=== PATIENT | male | born 1980 | race Caucasian/White ===

== ENCOUNTER 2019-01-07 20:41 | Emergency (ER) | payer MEDICAID, OTHER ==
[~2019-01-07] VITALS: Ht 175.3 cm; Wt 81.1 kg
--- NOTE | 2019-01-07 21:03 | NUR ---
C/O SUIDICAL IDEATION WITH PLAN ( RAN INTO TRAFFIC ) HEARING VOICES. HX OF SCHIZOPHRENIA AND RAN OUT OF PSYCH MEDICATION X 1 WEEK. + ETOH. LAST DRINK APPROX 1 HOUR AGO. UA COLLECTED AND WALKED TO LAB. PT GETTING CHANGED AND ROOM SECURED. PT TO BE EVALUATED BY .
[2019-01-07 21:19] LABS: AMPHETAMINE SCREEN, URINE Negative (Negative); BARBITURATE SCREEN, URINE Negative (Negative); BENZODIAZEPINE SCREEN, URINE Negative (Negative); CANNABINOID SCREEN, URINE Negative (Negative); COCAINE SCREEN, URINE Negative (Negative); METHADONE SCREEN, URINE Negative (Negative); OPIATE SCREEN, URINE Negative (Negative)
[2019-01-07 21:27] LABS: MEAN CORPUSCULAR HEMOGLOBIN 22.2 pg (27.5-34.5); MEAN CORPUSCULAR VOLUME 74.8 fL (81-97); MEAN PLATELET VOLUME 8.3 fL (7.4-10.4); PLATELET COUNT 407 x10^3/uL (130-400); RED BLOOD COUNT 3.65 x10^6/uL (4.38-5.82); RED CELL DISTRIBUTION WIDTH 19.2 % (9.4-14.8)
--- NOTE | 2019-01-07 21:27 | NUR ---
PTS BELONGINGS REMOVED AND SECURED. 3 BAGS PLACED IN LOCKER. PT RESTING WITH NO NEEDS AT THIS TIME. SITTER IN VIEW OF PT.
[2019-01-07 21:28] LABS: ALBUMIN 3.3 g/dL (3.4-5.0); ANION GAP 8 mmol/L (5-15); CALCIUM 8.3 mg/dL (8.5-10.1); CHLORIDE 112 mmol/L (98-107); CREATININE 0.71 mg/dL (0.7-1.3)
[2019-01-07 21:31] LABS: MEAN CORPUSCULAR HGB CONC 29.7 g/dL (33.2-36.2)
[2019-01-07 21:32] LABS: SALICYLATE LEVEL < 1.7 mg/dL (2.8-20.0)
[2019-01-07 21:52] LABS: BASOPHILS # (AUTO) 0.12 x10^3/uL (0-0.1); BASOPHILS % (AUTO) 2 % (0-1); EOSINOPHILS # (AUTO) 0.29 x10^3/uL (0-0.4); EOSINOPHILS % (AUTO) 4 % (1-7); LYMPHOCYTES % (AUTO) 34 % (22-44); MD SCAN; MONOCYTES # (AUTO) 0.57 x10^3/uL (0.2-0.8); MONOCYTES % (AUTO) 8 % (2-9); NEUTROPHILS # (AUTO) 3.98 x10^3/uL (1.8-6.8); NEUTROPHILS % (AUTO) 53 % (42-75)
[2019-01-07] MEDS ORDERED: ZIPR40CA2 PO (21:53)
[2019-01-07] MEDS ORDERED: BUPR-86 PO (21:53)
[2019-01-07] MEDS ORDERED: LAMO100T5 PO (21:53)
--- NOTE | 2019-01-07 22:16 | NUR ---
TP RN: SOC CONSULT INITIATED.
--- NOTE | 2019-01-07 23:30 | NUR ---
REPORT GIVEN TO SOC. PT WOKEN UP TO SPEAK TO SOC.
--- NOTE | 2019-01-08 00:17 | NUR ---
PT RESTING. EVEN RISE AND FALL OF CHEST OBSERVED. SITTER IN VIEW OF PT.
--- NOTE | 2019-01-08 00:54 | NUR ---
PT SPEAKING WITH SOC
--- NOTE | 2019-01-08 01:45 | NUR ---
PT SLEEPING. EVEN RISE AND FALL OF CHEST OBSERVERED. SITTER IN VIEW OF PT.
--- NOTE | 2019-01-08 01:58 | NUR ---
TP RN: PACK[facility]ED [facility].--PT. IS SELF PAY.
--- NOTE | 2019-01-08 02:02 | NUR ---
RG RN: CONFIRMATION FAX RECEIVED FROM [facility].
--- NOTE | 2019-01-08 03:13 | NUR ---
RECEIVED REPORT FROM STEVE PERALTA TO ASSUME CARE OF PT. PT. RESTING ON GURNEY WITH EYES CLOSED. EVEN, NON-LABORED RESPIRATIONS VISIBLE. ROOM SECURED. SITTER IN BLAND. REQUESTED HOSPITAL BED FROM HOUSEKEEPING.
--- NOTE | 2019-01-08 04:36 | NUR ---
PT. CHANGED OVER TO HOSPITAL BED. PT. PROVIDED WITH SANDWICH/CHIPS FROM COFFEE CART AND ICE WATER PER REQUEST. PT. VERY CALM/COOPERATIVE WITH STAFF. PT. DENIES OTHER NEEDS. ROOM REMAINS SECURED. SITTER IN BLAND.
--- NOTE | 2019-01-08 05:39 | NUR ---
PT. RESTING ON GURNEY WITH EYES CLOSED. EVEN, NON-LABORED RESPIRATIONS VISIBLE. ROOM REMAINS SECURED. SITTER IN BLAND.
--- NOTE | 2019-01-08 07:07 | NUR ---
REPORT TO STEVE EASON. PT. CONTINUES RESTING ON HOSPITAL BED WITH EVEN, NON-LABORED RESPIRATIONS VISIBLE. SITTER REMAINS IN BLAND, ROOM SECURED.
--- NOTE | 2019-01-08 07:59 | NUR ---
TASK RN: PT SLEEPING IN BED. SITTER REMAINS AT BEDSIDE. ROOM REMAINS SECURE.
[2019-01-08] MEDS: ZIPRASIDONE 40MG CAPSULE PO SCH ×2 (08:46→21:54)
--- NOTE | 2019-01-08 08:49 | NUR ---
BREAKFAST AND MORNING MEDICATION GIVEN TO PATIENT. SUICIDE RISK REASSESSMENT DONE. PATIENT ENDORSES FEELING SUICIDAL AND STATES THAT HE HAS A PLAN TO JUMP OUT IN FRONT OF TRAFFIC. PT REMAINS UNDER CONSTANT SUPERVISION OF SITTER IN HALLWAY AND REMAINS SAFE.
--- NOTE | 2019-01-08 08:59 | NUR ---
VS UPDATED AND WNL.
--- NOTE | 2019-01-08 10:00 | NUR ---
PT RESTING WITH NO COMPLAINTS. PATIENT REMAINS UNDER CONSTANT SUPERVISION OF SITTER AND REMAINS SAFE.
--- NOTE | 2019-01-08 11:42 | NUR ---
LUNCH TRAY ORDERED FOR PATIENT.
--- NOTE | 2019-01-08 13:00 | NUR ---
PT RESTING WITH NO COMPLAINTS. PATIENT REMAINS UNDER CONSTANT SUPERVISION OF SITTER AND REMAINS SAFE.
--- NOTE | 2019-01-08 14:00 | NUR ---
PT RESTING WITH NO COMPLAINTS. PATIENT REMAINS UNDER CONSTANT SUPERVISION OF SITTER AND REMAINS SAFE.
--- NOTE | 2019-01-08 15:00 | NUR ---
PT RESTING WITH NO COMPLAINTS. PATIENT REMAINS UNDER CONSTANT SUPERVISION OF SITTER AND REMAINS SAFE.
--- NOTE | 2019-01-08 16:00 | NUR ---
PT RESTING WITH NO COMPLAINTS. PATIENT REMAINS UNDER CONSTANT SUPERVISION OF SITTER AND REMAINS SAFE.
--- NOTE | 2019-01-08 17:00 | NUR ---
DINNER TRAY SERVED TO PATIENT. PT RESTING WITH NO COMPLAINTS. PATIENT REMAINS UNDER CONSTANT SUPERVISION OF SITTER AND REMAINS SAFE.
--- NOTE | 2019-01-08 18:00 | NUR ---
PT RESTING WITH NO COMPLAINTS. PATIENT REMAINS UNDER CONSTANT SUPERVISION OF SITTER AND REMAINS SAFE.
--- NOTE | 2019-01-08 18:56 | NUR ---
SBAR HAND-OFF REPORT TO STEVE IZAGUIRRE.
--- NOTE | 2019-01-08 21:31 | NUR ---
1ST CONTACT C PT. APPEARS ASLEEP ON CART. RR EVEN NON LABORED. SITTER REMAINS OUTSIDE OF ROOM. WILL CTM.
[2019-01-08] MEDS: LAMOTRIGINE 25 MG TABLET PO SCH (21:54)
--- NOTE | 2019-01-09 03:03 | NUR ---
PT SLEEPING. RR EVEN NON LABORED. SITTER REMAINS OUTSIDE OF ROOM. WILL CTM.
--- NOTE | 2019-01-09 04:51 | NUR ---
REPORT RECEIVED, CARE ASSUMED
--- NOTE | 2019-01-09 06:16 | NUR ---
PT SLEEPING IN SECURE ROOM WITH SITTER AT DOOR. PO FLUIDS AT BEDSIDE. CONT TO MONITOR.
--- NOTE | 2019-01-09 06:53 | NUR ---
Received report from STEVE Perez. All questions answered. Assuming care of pt at this time.
--- NOTE | 2019-01-09 07:08 | NUR ---
Pt resting supine on hospital bed. NADN. Pt has unlabored respirations with even chest rise and fall. Room remains secured for SI and HI. No needs expressed. Sitter near doorway in direct line of sight for observation.
--- NOTE | 2019-01-09 07:49 | NUR ---
Obtained vital signs, performed physical assessment, and performed SI re-assessment. Pt denies HI. Pt admits SI with plan to "jump in front of track." Pt admits auditory hallucinations, denies visual hallucinations. Pt resting on hospital bed watching TV. NADN. No needs expressed. Sitter near doorway in direct line of sight for observation.
[2019-01-09] MEDS ORDERED: ZIPRASIDONE 20MG CAPSULE ONE (08:51)
[2019-01-09] MEDS ORDERED: BUPROPION SR 150 MG TABLET PO SCH (09:00)
--- NOTE | 2019-01-09 09:01 | NUR ---
Pt provided breakfast tray. Pt appreciative. NADN. No other needs requested. Sitter near doorway in direct line of sight for observation.
[2019-01-09] MEDS: ZIPRASIDONE 40MG CAPSULE PO SCH ×2 (09:24→20:42)
[2019-01-09] MEDS: LAMOTRIGINE 25 MG TABLET PO SCH ×2 (09:25→20:42)
--- NOTE | 2019-01-09 09:29 | NUR ---
Provided medications per EMAR. NADN. No other needs expressed. Pt watching TV resting supine on hospital bed. Room remains secured for SI/HI and sitter near doorway in direct line of sight for observation.
--- NOTE | 2019-01-09 10:47 | NUR ---
Provided report to STEVE Ramsey from 3 E. All questions answered. STEVE Ramsey to assume care of pt at this time. NADN. No needs expressed.
--- NOTE | 2019-01-09 11:29 | NUR ---
Assumed pt care. Report received from Sintia. Pt was calmly watching TV, with sitter in the peña. Pt is cooperative with assessment. He endorses SI with plan to run into traffic. He denies HI. No s/s of any discomfort at this time.
--- NOTE | 2019-01-09 12:14 | NUR ---
Served pt's lunch tray. No needs verbalized at this time. Sitter in peña and kept pt within line of sight.
--- NOTE | 2019-01-09 13:07 | NUR ---
Pt asleep. No acute distress noted. Sitter by the door to continue close observation.
--- NOTE | 2019-01-09 14:09 | NUR ---
Dinner tray ordered. Pt is currently sleeping at this time. Sitter by the door for close observation. No acute distress noted.
--- NOTE | 2019-01-09 15:15 | NUR ---
Pt resting in room. No acute distress noted. Sitter in the peña to continue close observation.
--- NOTE | 2019-01-09 16:26 | NUR ---
Pt was snacks per request. No further needs verbalized at this time. Sitter by the door to continue close observation.
--- NOTE | 2019-01-09 16:46 | NUR ---
Dinner tray served. Pt is pleasant and appreciative. He denies any other needs at this time. Sitter in the peña to continue close observation.
--- NOTE | 2019-01-09 17:09 | NUR ---
Pt resting at this time. No acute distress noted. Sitter in the peña to continue close observation.
--- NOTE | 2019-01-09 18:07 | NUR ---
Pt resting in secure room. No acute distress noted. Sitter by the door to continue close observation.
--- NOTE | 2019-01-09 19:10 | NUR ---
RECIEVED REPORT FROM MAY. ASSUMED CARE OF PT. BROUGHT PT A DINNER TRAY PER REQUEST.
--- NOTE | 2019-01-09 20:43 | NUR ---
PT SLEEPING. RESP EVEN AND UNLABORED. SITTER AT DOOR.
--- NOTE | 2019-01-09 23:00 | NUR ---
PT SLEEPING. RESP EVEN AND UNLABORED. SITTER IN BLAND AT LINE OF SIGHT.
--- NOTE | 2019-01-10 01:05 | NUR ---
PT SLEEPING. RESP EVEN, AND UNLABORED. SITTER IN BLAND IN LINE OF SIGHT.
--- NOTE | 2019-01-10 03:00 | NUR ---
PT SLEEPING. RESP EVEN AND UNLABORED. SITTER IN BLAND IN DIRECT LINE OF SIGHT.
[2019-01-10 04:00] VITALS: BP 110/59
--- NOTE | 2019-01-10 05:01 | NUR ---
PT SLEEPING. SITTER IN BLAND AT LINE OF SIGHT.
--- NOTE | 2019-01-10 05:58 | NUR ---
PT UP TO THE BATHROOM THEN RESTING IN BED. SITTER IN BLAND.
--- NOTE | 2019-01-10 06:46 | NUR ---
REPORT TAKEN FROM STEVE HERNANDEZ. PT RESTING ON HOSPITAL BED. NADN. ROOM SECURED. SITTER IN SHADY SIDEWAY.
--- NOTE | 2019-01-10 06:49 | NUR ---
BREAKFAST TRAY ORDERED FOR PT.
--- NOTE | 2019-01-10 07:20 | NUR ---
REPORT FROM JANIS WILSON PATIENT A LEGAL HOLD FOR DANGER TO SELF/OTHERS/INABILITY TO CARE FOR SELF PATIENT RESTING COMFORTABLY ON HOSPITAL BED MANUFACTURING ENGINEERING MANAGER SPENT 10 MINUTES ASSESSING PATIENT. HE FEELS "LIKE I'M MAYBE AT 6O% BACK TO NORMAL. I WAS ALL HOMICIDAL/SUICIDAL THE LAST COUPLE DAYS BECAUSE I WAS COMING OFF METH AND ETOH AND I WAS ALSO IN A MANIAC EPISODE. I FEEL BETTER NOW BUT I FEEL LOST. IM NOT NEAR MY PEOPLE. I DON'T HAVE AN ID AND THIS [facility] HAS ME OVER-TIRED." PATIENT UPDATED ON CURRENT POC: AWAITING [facility] BED, AND DOES HAVE A PSYCHIATRY TEAM THAT CAN ADDRESS HIS NEEDS WHILE HE WAITS HERE IN THE EMERGENCY ROOM. MANUFACTURING ENGINEERING MANAGER ASKED PATIENT IF HE HAS A GOOD SOCIAL NETWORK, PHYSICATRIST BACK HOME IN [place]. HE REPORTS THAT HE DOES MANUFACTURING ENGINEERING MANAGER TO ATTEMPT TO OBTAIN TRANSPORTATION FOR PATIENT BACK TO [facility] WITHIN DIRECT EYELINE ROOM SECURED WITH PSYCHIATRIC PRECAUTIONS
--- NOTE | 2019-01-10 07:35 | NUR ---
REPORT GIVEN TO STEVE PLASCENCIA.
--- NOTE | 2019-01-10 08:05 | NUR ---
PSYCHIATRY MAT MACHINE OPERATOR PAGED AT [phone] IN REGARD TO REASSESSMENT (NEEDS TRANPORTATION BACK HOME & DOESN'T WANT TO TAKE GEODON ANY MORE) BREAKFAST TRAY ORDERED
[2019-01-10] MEDS: ZIPRASIDONE 40MG CAPSULE PO SCH (08:30)
--- NOTE | 2019-01-10 08:33 | NUR ---
MORNING MEDS ORDERED FROM PHARMACY
--- NOTE | 2019-01-10 08:56 | NUR ---
MEDICATED PER EMAR (WELLBUTRIN & LAMICTAL). REFUSED [facility] BREAKFAST TRAY DELIVERED PATIENT ALLOWED TO USE PHONE (CALLED FAMILY BACK IN [place])
[2019-01-10] MEDS ORDERED: NICOTINE 21 MG/24 HR PATCH.TD24 ONE (09:12)
[2019-01-10] MEDS ORDERED: NICOTINE 21 MG/24 HR PATCH.TD24 TD ONE (10:00)
--- NOTE | 2019-01-10 11:50 | NUR ---
PSYCHIATRY MOTOR COACH DRIVER AT BEDSIDE-PLAN TO D/C LATER THIS AFTERNOON HOWEVER, SITTER REMAINS AT BEDSIDE PRECAUTION UNTIL D/C PAERWORK FINALIZED\ PROVIDED WITH LUNCH
[2019-01-10] MEDS ORDERED: HYDROXYZINE PAMOATE 50MG CAP PO PRN (12:30)
--- NOTE | 2019-01-10 14:50 | NUR ---
DISCHARGED VIA TAXI VOUCHER TO BUS STATION. WHERE PATIENT TO TAKE BUS BACK TO [place] WHERE HE WILL RESUME PSYCHIATRIC CARE WITH ESTABLISHED PROVIDERS UNINDENTURED APPRENTICE COMFORTABLE DISCHARGING PATIENT I BELIVE HE IS NOT A RISK TO HIMSELF OR OTHERS. PATIENT ASKED TO SEEK TREATMENT FOR METH/ETOH ABUSE. PATIENT AGREEABLE
== END 2019-01-10 15:16 | disposition home or self-care (01) ==
LOC: ED 22:02
DX: R45.851 Suicidal ideations (principal); F20.0 Paranoid schizophrenia; F15.10 Other stimulant abuse, uncomplicated; F28 Other psychotic disorder not due to a substance or known physiological condition; D64.9 Anemia, unspecified
CPT/HCPCS: 36415; 80048; 80307; 82040; 85025; 99284

== ENCOUNTER 2019-08-30 11:30 | Emergency (ER) | payer MEDICAID ==
[~2019-08-30] VITALS: Ht 175.3 cm; Wt 82.0 kg
[~2019-08-30 11:30] MED LIST: BUPR-86 PO; LAMO100T5 PO; ZIPR40CA2 PO
--- NOTE | 2019-08-30 11:35 | NUR ---
OUTSIDE MEDICAL SALES REPRESENTATIVE: PT SENT OVER FROM [facility]. PER MCKENZIE AT [facility] "WE ARE AT [facility]" PT ON LEGAL HOLD
--- NOTE | 2019-08-30 11:53 | NUR ---
TASK RN. PT JOLENE YOUNG FROM [facility]. PT TOOK SELF TO [facility] TODAY FOR SI, STATES HE WILL WALK IN FRONT OF A CAR. [facility] PLACED PT ON A LEGAL HOLD, HOWEVER, CALLED ER AND STATED THEY WERE AT [facility] AND WERE SENDING PT TO THE ER. PT IS CALM AND COOPERATIVE WHEN ARRIVED, STATES HE STILL HAS SI THOUGHTS. PT PLACED IN GOWN ONLY, BELONGINGS LOCKED IN LOCKER FOR SAFETY. PT IN SECURED ROOM, SITTER CALLED. UA COLLECTED, SENT TO LAB. PT STATES HE DOES DRINK 3 PINTS OF VODKA DAILY, ER AWARE, STATES HIS LAST DRINK WAS LAST NIGHT. PT AWAITING LAB DRAW.
[2019-08-30 12:06] LABS: BASOPHILS # (AUTO) 0.03 x10^3/uL (0-0.1); BASOPHILS % (AUTO) 1 % (0-1); EOSINOPHILS # (AUTO) 0.07 x10^3/uL (0-0.4); EOSINOPHILS % (AUTO) 1 % (1-7); LYMPHOCYTES # (AUTO) 1.37 x10^3/uL (1-3.4); LYMPHOCYTES % (AUTO) 27 % (22-44); MD NO; MEAN CORPUSCULAR HEMOGLOBIN 30.4 pg (27.5-34.5); MEAN CORPUSCULAR HGB CONC 32.1 g/dL (33.2-36.2); MEAN CORPUSCULAR VOLUME 94.7 fL (81-97); MEAN PLATELET VOLUME 8.8 fL (7.4-10.4); MONOCYTES # (AUTO) 0.42 x10^3/uL (0.2-0.8); MONOCYTES % (AUTO) 8 % (2-9); NEUTROPHILS # (AUTO) 3.28 x10^3/uL (1.8-6.8); NEUTROPHILS % (AUTO) 63 % (42-75); PLATELET COUNT 302 x10^3/uL (130-400); RED BLOOD COUNT 4.19 x10^6/uL (4.38-5.82)
[2019-08-30 12:18] LABS: ALANINE AMINOTRANSFERASE 25 U/L (12-78); ALBUMIN 3.7 g/dL (3.4-5.0); ANION GAP 4 mmol/L (5-15); CALCIUM 8.9 mg/dL (8.5-10.1); CHLORIDE 110 mmol/L (98-107); CREATININE 0.83 mg/dL (0.7-1.3)
[2019-08-30 12:20] LABS: ALKALINE PHOSPHATASE 57 U/L (45-117); BILIRUBIN,TOTAL 0.5 mg/dL (0.2-1.0); TOTAL PROTEIN 7.5 g/dL (6.4-8.2)
[2019-08-30 12:21] LABS: SALICYLATE LEVEL < 1.7 mg/dL (2.8-20.0)
[2019-08-30 12:21] LABS: AMPHETAMINE SCREEN, URINE Negative (Negative); BARBITURATE SCREEN, URINE Negative (Negative); BENZODIAZEPINE SCREEN, URINE Positive (Negative); CANNABINOID SCREEN, URINE Negative (Negative); COCAINE SCREEN, URINE Negative (Negative); METHADONE SCREEN, URINE Negative (Negative); OPIATE SCREEN, URINE Negative (Negative)
--- NOTE | 2019-08-30 12:54 | NUR ---
PRODUCT MANUFACTURING PROFESSIONAL AT BEDSIDE
[2019-08-30] MEDS ORDERED: ARIPIPRAZOLE 400 MG INJ NC IM ONE (13:30)
[2019-08-30] MEDS: LAMOTRIGINE 25 MG TABLET PO SCH (13:30)
[2019-08-30] MEDS: ARIPIPRAZOLE 10 MG TABLET PO SCH (13:30)
[2019-08-30] MEDS ORDERED: LORazepam 0.5MG TABLET PO ONE (13:30)
[2019-08-30] MEDS ORDERED: BUPROPION 75 MG TABLET PO SCH (13:30)
--- NOTE | 2019-08-30 14:02 | NUR ---
GARRY RN: MEDICATION REQUESTED FROM PHARMACY. REPORT TO AYESHA WILSON.
--- NOTE | 2019-08-30 14:15 | NUR ---
THROUGHPUT RN: NEDA DECLINED PT.
[2019-08-30] MEDS ORDERED: ARIPIPRAZOLE 10 MG TABLET ONE (14:20)
[2019-08-30] MEDS ORDERED: LORazepam 0.5MG TABLET ONE (14:21)
--- NOTE | 2019-08-30 14:24 | NUR ---
THROUGHPUT RN: PACKET FAXED TO [facility], [facility], AND [facility].
--- NOTE | 2019-08-30 14:43 | NUR ---
MEDICATED PER ORDERS. PT RESTING. SITTER PRESENT
--- NOTE | 2019-08-30 14:55 | NUR ---
[facility] IS NOT CONTRACTED W [employer]. PT WOULD HAVE TO SELF PAY.
[2019-08-30] MEDS: NICOTINE 21 MG/24 HR PATCH.TD24 TD SCH (15:00)
[2019-08-30] MEDS ORDERED: NICOTINE 21 MG/24 HR PATCH.TD24 ONE (15:03)
--- NOTE | 2019-08-30 15:32 | NUR ---
NICOTINE PATCH APPLIED. ORDERED HOSPITAL BED FOR COMFORT
--- NOTE | 2019-08-30 16:34 | NUR ---
PT SLEEPING. SITTER PRESENT
--- NOTE | 2019-08-30 17:41 | NUR ---
PT GIVEN MEAL TRAY
[2019-08-30] MEDS ORDERED: ONDANSETRON ODT 4 MG ONE (18:39)
--- NOTE | 2019-08-30 18:42 | NUR ---
PT STATES HE FEELS NAUSOUS, MEDICATED W MARIAH
--- NOTE | 2019-08-30 18:49 | NUR ---
REPORT TO FARZANEH
--- NOTE | 2019-08-30 18:50 | NUR ---
assumed care of pt. repot from Rodríguez WILSON. pt here for SI. reports that his plan is to "jump in front of traffic". pt reports that he has a previous SA via attempted hanging. pt reports that he is bipolar and that he has not been very compliant with his meds. pt denies hallucinations/delusions. pt urine sample has been collected and sent. belongings have been collected and locked up by previous RN and room secure. legal hold in place. sitter at bedside for safety. pt reports that he is a daily drinker and that he ususally drinks mulitple litres of vodka pe day. 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 pt is currently A&O x. calm and cooperative. no shaking noted. pink wam and dry. pt updated on POC pt has already had a meal tray and has no other needs at this time
[2019-08-30] MEDS ORDERED: ONDANSETRON ODT 4 MG PO ONE (19:00)
[2019-08-30] MEDS ORDERED: LORazepam 1MG TABLET ONE (19:43)
--- NOTE | 2019-08-30 19:50 | NUR ---
pt sleeping. easily aroused. pt medicated to prevent sz activity from ETOH withdrawls. pt has no new c/o at this time. no sz type activity noted. pt resting in position of comfort with lights dimmed. room secure. sitter present for safety
[2019-08-30] MEDS ORDERED: LORazepam 1MG TABLET PO ONE (20:00)
--- NOTE | 2019-08-30 21:15 | NUR ---
pt given PO fluids per request. room secure. sitter present for safety
--- NOTE | 2019-08-30 21:50 | NUR ---
pt given PO snack per request. no new c/o
--- NOTE | 2019-08-30 22:40 | NUR ---
pt sleeping. no apparent distress room secure. sitte present for safety. will continue to monior
--- NOTE | 2019-08-30 23:45 | NUR ---
no changes. pt sleeping. no apparent distress. room secure. sitter present for safety
--- NOTE | 2019-08-31 00:43 | NUR ---
report to Yosef WILSON for lunch
--- NOTE | 2019-08-31 01:39 | NUR ---
no changes. pt sleeping. no apparent distress. room secure. sitter present for safety. will continue to monitor
--- NOTE | 2019-08-31 02:41 | NUR ---
PO snack given pe pt request. pt has no tremulous activity noted. calm and cooperative room secure. sitter present for safety
--- NOTE | 2019-08-31 03:44 | NUR ---
pt sleeping. room secure. sitter present for safety
--- NOTE | 2019-08-31 04:27 | NUR ---
pt continues sleeping on hospital bed in position of comfort. Room secure. sitter present for safety
[2019-08-31] MEDS ORDERED: ARIP10TA33 PO (06:05)
[2019-08-31] MEDS: LAMOTRIGINE 25 MG TABLET PO SCH ×3 (06:06→21:47)
--- NOTE | 2019-08-31 06:09 | NUR ---
pt sleeping. easily arousable. pt medicated per order. no apparent distress. no tremulous activity noted. pt calm and cooperative. updated on POC. awaiting meal tray delivery room secure. sitter present for safety
--- NOTE | 2019-08-31 06:56 | NUR ---
BEDSIDE REPORT RECEIVED FROM GOPAL MOY RN. PT RESTING IN BED. SITTER REMAINS AT BEDSIDE. ROOM REMAINS SECURE.
--- NOTE | 2019-08-31 07:02 | NUR ---
bedside report to Kalyani WILSON
--- NOTE | 2019-08-31 07:30 | NUR ---
YELLOW SLIP SENT TO PHARMACY FOR MEDS.
[2019-08-31] MEDS ORDERED: NICOTINE 21 MG/24 HR PATCH.TD24 ONE (08:23)
[2019-08-31] MEDS: BUPROPION 75 MG TABLET PO SCH ×2 (08:36→15:05)
[2019-08-31] MEDS: ARIPIPRAZOLE 10 MG TABLET PO SCH (08:36)
[2019-08-31] MEDS: NICOTINE 21 MG/24 HR PATCH.TD24 TD SCH (08:36)
--- NOTE | 2019-08-31 08:36 | NUR ---
PT RESTING IN BED. NADN. VSS. PT PROVIDED W/ SI BREAKFAST TRAY. SITTER REMAINS AT BEDSIDE. ROOM REMAINS SECURE.
--- NOTE | 2019-08-31 09:40 | NUR ---
PT RESTING IN BED. NADN. SITTER REMAINS AT BEDSIDE. ROOM REMAINS SECURE.
--- NOTE | 2019-08-31 10:01 | NUR ---
PT PROVIDED W/ SUPPLIES TO BRUSH TEETH AND SHOWER. PT PERFORMED HYGIENE MATTERS W/ THIS RN FOR SUPERVISION. PT BACK TO ROOM. SITTER REMAINS AT BEDSIDE. ROOM REMAINS SECURE.
--- NOTE | 2019-08-31 11:14 | NUR ---
PT RESTING IN BED. NADN. SITTER REMAINS AT BEDSIDE. ROOM REMAINS SECURE.
--- NOTE | 2019-08-31 12:02 | NUR ---
PT PROVIDED W/ SI LUNCH TRAY. PT RESTING IN BED. NADN. SITTER REMAINS AT BEDSIDE. ROOM REMAINS SECURE.
--- NOTE | 2019-08-31 13:10 | NUR ---
I AM ASSUMING CARE OF THIS PT FROM ZEINA (STEVE) AT THIS TIME. SBAR REPORT WAS EXCHANGED AT THE BEDSIDE.
--- NOTE | 2019-08-31 13:12 | NUR ---
REPORT GIVEN TO STEVE ISIDRO.
--- NOTE | 2019-08-31 13:51 | NUR ---
OCCUPATIONAL NURSE IS AT THE BEDSIDE FOR CONSULT
[2019-08-31] MEDS ORDERED: LORazepam 0.5MG TABLET PO PRN (14:30)
[2019-08-31] MEDS ORDERED: NALTREXONE HCL 50 MG TABLET PO ONE (14:30)
[2019-08-31] MEDS ORDERED: ONDANSETRON ODT 4 MG PO ONE (14:30)
[2019-08-31] MEDS ORDERED: ONDANSETRON ODT 4 MG ONE (14:50)
--- NOTE | 2019-08-31 14:57 | NUR ---
PT UP TO THE PHONE W NO ASSIST. HE IS COOPERATIVE, AND BEHAVING APPROPRIATELY. SANDWICH PROVIDED PER REQUEST. I WILL CONTINUE TO MONITOR AND TREAT ORDERED, WELL PRN WHILE AWAITING A ROOM ASSIGNMENT FOR ADMISSION.
--- NOTE | 2019-08-31 15:03 | NUR ---
PT REQUESTING COVID SWAB FOR RULE OUT. IT IS A REQUIREMENT OF SOME LOCAL SHELTERS IN REGARD TO HOUSING.
--- NOTE | 2019-08-31 15:21 | NUR ---
BREAK RN: PATIENT UP TO RESTROOM TO BRUSH TEETH, DOOR OPEN FOR VISUAL SAFETY. PATIENT BACK IN BED RESTING COMFORTABLY WATCHING TV. SITTER AT DOOR.
--- NOTE | 2019-08-31 16:18 | NUR ---
PT UP TO THE RESTROOM FOR DENTAL HYGEINE
--- NOTE | 2019-08-31 16:43 | NUR ---
PT UP TO USE THE PHONE. BEHAVIOR IS APPROPRIATE, AND HE IS COOPERATIVE.
--- NOTE | 2019-08-31 17:34 | NUR ---
pt up to the phone with a steady gait. he is cooperative and compliant with care. mealtray provided, and appreciated. vs are stable and wdl at this time. there are no acute changes noted otherwise. i will continue to monitor and treat as ordered, as well as prn while awaiting a room assignment for psychiatric care.
--- NOTE | 2019-08-31 18:57 | NUR ---
FARZANEH (RN) IS ASSUMING CARE OF THIS PT AT THIS TIME. SBAR REPORT WAS EXCHANGED AT THE BEDSIDE.
--- NOTE | 2019-08-31 19:05 | NUR ---
assumed care of pt. pt remains here on a legal hold for SI. pt awaiting placement to mental health facility. pt is currently calm and cooperative. meal tray at bedside pt is a heavy daily drinker and reports that he is starting to feel like his "skin is crawling". no tremulous activity noted. A&Ox4. room secure. [facility] safety
[2019-08-31] MEDS ORDERED: LORazepam 1MG TABLET ONE (19:56)
[2019-08-31] MEDS ORDERED: LORazepam 1MG TABLET PO ONE (20:00)
--- NOTE | 2019-08-31 20:00 | NUR ---
pt medicated for withdrawl prevention. calm and cooperative. positioning for comfort. lights dimmed. updated on POC room secure. sitter present for safety
--- NOTE | 2019-08-31 21:09 | NUR ---
no changes. awaiting Rx dlivery form pharmacy. pt resting in position of comfort. room secure. sitte present for safety
--- NOTE | 2019-08-31 21:49 | NUR ---
pt sleeping. easily arousable. medicated per order. well tolerated. room secure. sitter present for comfort
--- NOTE | 2019-08-31 23:05 | NUR ---
pt sleeping in position of comfort on hospital bed with lights dimmed. no apparent distress room secure. sitter present for safety
--- NOTE | 2019-09-01 00:03 | NUR ---
no changes. pt sleeping in posiiton of comfort on hospital bed with lights dimmed. no apparent distress room secure. sitter present for safety
--- NOTE | 2019-09-01 00:14 | NUR ---
report to Kristyn WILSON for lunch
--- NOTE | 2019-09-01 01:00 | NUR ---
pt is in no apparent distress. dozing intermittently. requesting PO snacks room secure. sitter present for safety
--- NOTE | 2019-09-01 02:00 | NUR ---
pt given cornellich per request. no apparent distress. room secure. sitter present for safety
--- NOTE | 2019-09-01 03:30 | NUR ---
no changes. pt sleeping in position of comfort. no apparent distress room secure. sitter present for safety
--- NOTE | 2019-09-01 04:45 | NUR ---
pt still sleeping. will coninue to monitor room secure. sitter at bedside for safety
--- NOTE | 2019-09-01 05:35 | NUR ---
no changes. pt sleeping. no apparent distress. will continue to monitor room secure. sitter at bedside for safety
--- NOTE | 2019-09-01 06:01 | NUR ---
pt sleeping. arousable. no tremulous activity noted. no apparent distress. no new c/o. calm and cooperative room secure. sitter present for safety
--- NOTE | 2019-09-01 06:55 | NUR ---
report to Rodríguez WILSON
--- NOTE | 2019-09-01 07:34 | NUR ---
REPORT FROM FARZANEH
[2019-09-01] MEDS ORDERED: ARIPIPRAZOLE 10 MG TABLET ONE (08:10)
[2019-09-01] MEDS ORDERED: LORazepam 0.5MG TABLET ONE (08:18)
[2019-09-01] MEDS ORDERED: ACETAMINOPHEN 500 MG TABLET ONE (08:19)
[2019-09-01] MEDS ORDERED: NICOTINE 21 MG/24 HR PATCH.TD24 ONE (08:19)
[2019-09-01] MEDS ORDERED: IBUPROFEN 800 MG TABLET ONE (08:27)
[2019-09-01] MEDS ORDERED: ACETAMINOPHEN 500 MG TABLET PO ONE (08:30)
[2019-09-01] MEDS ORDERED: IBUPROFEN 800 MG TABLET PO ONE (08:30)
[2019-09-01] MEDS: BUPROPION 75 MG TABLET PO SCH ×2 (08:38→14:00)
[2019-09-01] MEDS: LAMOTRIGINE 25 MG TABLET PO SCH ×2 (08:38→21:00)
[2019-09-01] MEDS: NICOTINE 21 MG/24 HR PATCH.TD24 TD SCH (08:39)
[2019-09-01] MEDS: ARIPIPRAZOLE 10 MG TABLET PO SCH (08:39)
--- NOTE | 2019-09-01 08:45 | NUR ---
MEDICATED PER ORDERS. MEAL TRAY GIVEN. PT WANTS TO TAKE SHOWER SOON. WILL ARRANGE FOR SHOWER
[2019-09-01] MEDS ORDERED: NALTREXONE HCL 50 MG TABLET PO SCH (09:00)
--- NOTE | 2019-09-01 09:44 | NUR ---
PT HAD BREAKFAST, RESINT, WATCHING TV. SITTER PRESENT
--- NOTE | 2019-09-01 10:44 | NUR ---
PT OK TO USE PHONE
--- NOTE | 2019-09-01 11:44 | NUR ---
PT RESTING, ORDERED MEAL TRAY
--- NOTE | 2019-09-01 12:30 | NUR ---
PT RESTING. MEAL TRAY EATEN. SITTER PRESENT
--- NOTE | 2019-09-01 14:19 | NUR ---
MEDICATED PER ORDERS.
[2019-09-01] MEDS ORDERED: GABAPENTIN 300 MG CAPSULE ONE (15:59)
[2019-09-01] MEDS: ACAMPROSATE 333 MG TABLET.DR PO SCH ×2 (16:00→21:00)
[2019-09-01] MEDS: GABAPENTIN 300 MG CAPSULE PO SCH ×2 (16:00→21:00)
[2019-09-01] MEDS ORDERED: ONDANSETRON ODT 4 MG PO ONE (19:00)
--- NOTE | 2019-09-01 19:00 | NUR ---
REPORT FROM MICHELE WILSON
--- NOTE | 2019-09-01 19:03 | NUR ---
PT STATSE HE IS NAUSEOUS AT THIS TIME, INFORMED DR GUTIERREZ AND WILL RECIEVE ORDER FOR ZOFRAN ODT 4MG
--- NOTE | 2019-09-01 20:29 | NUR ---
PT RESTING COMFORTABLY IN BED, REPORTS RELIEF FOLLOWING ZOFRAN ADMINISTRATION FOR NAUSEA
--- NOTE | 2019-09-01 21:48 | NUR ---
Pt medicated per mar, pt states he is "doing okay right now," denies any further needs at this time, safety of room ensured, call rutledge within reach, sitter observing from hallway, will continue to monitor
--- NOTE | 2019-09-02 00:17 | NUR ---
pt resting in bed with eyes closed, NAD noted, sitter observing from hallway,
--- NOTE | 2019-09-02 00:52 | NUR ---
Pt appears comfortable resting in bed with eyes shut, call rutledge within reach, sitter observing from hallway, KIKE noted
--- NOTE | 2019-09-02 03:01 | NUR ---
pt resting in bed with eyes closed, NAD noted, call rutledge within reach, sitter observing from peña, will continue to monitor
--- NOTE | 2019-09-02 04:23 | NUR ---
PT RESTING IN BED, NO REQUESTS AT THIS TIME, SITTER OBSERVING IN HALLWAY
--- NOTE | 2019-09-02 06:15 | NUR ---
PT CONTINUES TO REST AND APPEARS COMFORTABLE IN BED, CALLBELL WITHIN REACH, SITTER WATCHING FROM BLAND, WILL CONTINUE TO MONITOR
--- NOTE | 2019-09-02 06:53 | NUR ---
REPORT TO RANDOLPH WILSON
--- NOTE | 2019-09-02 06:54 | NUR ---
report from patti ledezma. as
[2019-09-02 07:23] VITALS: BP 117/63
--- NOTE | 2019-09-02 07:24 | NUR ---
PT RESTING IN BED NO COMPLAINTS. TO BATHROOM GAIT STEADY. PHYSICAL ASSESSMENT UNREMARKABLE. DENIES SI/HI. WANTS TO LEAVE. TOLD THAT PSYCH WILL REASSSESS TODAY. PT COOPERATIVE, CALM. ORDERED MEALTRAY. COFFEE. SITTER IN PLACE.
[2019-09-02] MEDS ORDERED: GABAPENTIN 300 MG CAPSULE ONE (08:04)
[2019-09-02] MEDS ORDERED: NICOTINE 21 MG/24 HR PATCH.TD24 ONE (08:05)
[2019-09-02] MEDS ORDERED: ARIPIPRAZOLE 10 MG TABLET ONE (08:05)
--- NOTE | 2019-09-02 08:30 | NUR ---
pt resting in bed, given breakfast, no needs at this time. as
[2019-09-02] MEDS: NICOTINE 21 MG/24 HR PATCH.TD24 TD SCH (09:10)
[2019-09-02] MEDS: GABAPENTIN 300 MG CAPSULE PO SCH (09:10)
[2019-09-02] MEDS: ARIPIPRAZOLE 10 MG TABLET PO SCH (09:10)
[2019-09-02] MEDS: BUPROPION 75 MG TABLET PO SCH (09:10)
[2019-09-02] MEDS: ACAMPROSATE 333 MG TABLET.DR PO SCH (09:11)
[2019-09-02] MEDS: LAMOTRIGINE 25 MG TABLET PO SCH (09:11)
--- NOTE | 2019-09-02 10:00 | NUR ---
resting in bed nad. as
--- NOTE | 2019-09-02 10:40 | NUR ---
macy gaviria from pharm. dangelo, sitter in place. as
--- NOTE | 2019-09-02 11:29 | NUR ---
pt oob to shower w sitter. as
--- NOTE | 2019-09-02 11:29 | NUR ---
meds re requested from pharm. as
--- NOTE | 2019-09-02 12:12 | NUR ---
GIVEN LUNCH. YOCASTA IN ROOM FOR EVAL.
--- NOTE | 2019-09-02 12:25 | NUR ---
TBDC, GIVEN 2 BAGS OF BELONGINGS.
== END 2019-09-02 13:10 | disposition home or self-care (01) ==
LOC: ED 12:11
DX: F31.9 Bipolar disorder, unspecified (principal); R45.851 Suicidal ideations; F17.200 Nicotine dependence, unspecified, uncomplicated; F20.9 Schizophrenia, unspecified
CPT/HCPCS: 36415; 80053; 80307; 85025; 96372; 99285; Q0162

== ENCOUNTER 2019-09-05 09:55 | Emergency (ER) | payer MEDICAID ==
[~2019-09-05] VITALS: Ht 175.3 cm; Wt 80.5 kg
[~2019-09-05 09:55] MED LIST changes: +ARIP10TA33 PO
[2019-09-05 10:04] VITALS: BP 124/73
== END 2019-09-05 10:33 | disposition left against medical advice (07) ==
LOC: ED 10:01
DX: R68.89 Other general symptoms and signs (principal); Z53.1 Procedure and treatment not carried out because of patient's decision for reasons of belief and group pressure

== ENCOUNTER 2019-10-18 08:12 | Emergency (ER) | payer BC, MEDICAID ==
[~2019-10-18] VITALS: Ht 175.3 cm; Wt 84.5 kg
[2019-10-18 08:14] VITALS: BP 130/74
== END 2019-10-18 09:07 | disposition home or self-care (01) ==
LOC: ED 08:46
DX: J45.31 Mild persistent asthma with (acute) exacerbation (principal); R94.31 Abnormal electrocardiogram [ECG] [EKG]
CPT/HCPCS: 93005; 99283

== ENCOUNTER 2019-10-20 14:16 | Emergency (ER) | payer MEDICAID ==
[~2019-10-20] VITALS: Ht 175.3 cm; Wt 82.0 kg
[2019-10-20 14:24] VITALS: BP 104/73
--- NOTE | 2019-10-20 14:25 | NUR ---
BIBA. REPORT RECEIVED FROM EMS. PT USED LSD LAST NIGHT THEN PT C/O HALLUCINATION. PT DENIES SI/HI AT THIS TIME. PT'S AOX4. RESPS EVEN AND UNLABORED.
--- NOTE | 2019-10-20 14:32 | NUR ---
EDMD AT BEDSIDE TO EVALUATE AT THIS TIME. PT STATED"I'M NOT SUICIDAL. I WANNA LEAVE."
== END 2019-10-20 14:32 | disposition home or self-care (01) ==
LOC: ED 14:30
DX: R44.3 Hallucinations, unspecified (principal); F41.9 Anxiety disorder, unspecified; J45.909 Unspecified asthma, uncomplicated; F17.200 Nicotine dependence, unspecified, uncomplicated
CPT/HCPCS: 99283

== ENCOUNTER 2019-10-29 03:18 | Emergency (ER) | payer MEDICAID ==
[~2019-10-29] VITALS: Ht 177.8 cm; Wt 77.0 kg
[2019-10-29] MEDS ORDERED: ZIPRASIDONE 20 MG INJ IM ONE ×2 (03:27→03:30)
[2019-10-29 03:42] LABS: BASOPHILS # (AUTO) 0.04 x10^3/uL (0-0.1); BASOPHILS % (AUTO) 1 % (0-1); EOSINOPHILS # (AUTO) 0.17 x10^3/uL (0-0.4); EOSINOPHILS % (AUTO) 2 % (1-7); LYMPHOCYTES # (AUTO) 3.51 x10^3/uL (1-3.4); LYMPHOCYTES % (AUTO) 38 % (22-44); MD NO; MEAN CORPUSCULAR HEMOGLOBIN 29.2 pg (27.5-34.5); MEAN CORPUSCULAR HGB CONC 32.6 g/dL (33.2-36.2); MEAN CORPUSCULAR VOLUME 89.6 fL (81-97); MONOCYTES % (AUTO) 9 % (2-9); NEUTROPHILS # (AUTO) 4.76 x10^3/uL (1.8-6.8); NEUTROPHILS % (AUTO) 51 % (42-75); PLATELET COUNT 292 x10^3/uL (130-400); RED BLOOD COUNT 4.35 x10^6/uL (4.38-5.82); RED CELL DISTRIBUTION WIDTH 15.7 % (9.4-14.8)
--- NOTE | 2019-10-29 03:43 | NUR ---
Patient BIB [facility] c/o auditory hallucinations and SI. Patient states he has thought about jumping into traffic and has a hx of SA by hanging himself. 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 Patient states he takes Abilify and Wellbutrin but has been out of his meds. Patient is in NAD. Respirations even and unlabored. Patient is mostly cooperative.
[2019-10-29 03:56] LABS: ALBUMIN 3.5 g/dL (3.4-5.0); ANION GAP 7 mmol/L (5-15); CALCIUM 8.5 mg/dL (8.5-10.1); CHLORIDE 113 mmol/L (98-107)
[2019-10-29 03:57] LABS: SALICYLATE LEVEL < 1.7 mg/dL (2.8-20.0)
[2019-10-29 03:59] LABS: ALANINE AMINOTRANSFERASE 31 U/L (12-78); ALKALINE PHOSPHATASE 47 U/L (45-117); BILIRUBIN,TOTAL 0.2 mg/dL (0.2-1.0); CREATININE 0.85 mg/dL (0.7-1.3)
--- NOTE | 2019-10-29 04:00 | NUR ---
Provided sandwich to patient.
--- NOTE | 2019-10-29 05:33 | NUR ---
Patient sleeping; attempted to get urine; patient not able to provide a urine sample at this time.
--- NOTE | 2019-10-29 07:00 | NUR ---
PT RESTING CALMLY IN BED WITH EYES CLOSED. NO DISTRESS OBSERVED.
--- NOTE | 2019-10-29 08:40 | NUR ---
PT WOKE UP WITH NO STIMULATION. ASKING TO GO HOME. ERP WENT IN TO SPEAK WITH PT. PT DENIED BEING SI. STATED HE DOESN'T REMEMBER IF HE TOLD THE DOC LAST NIGHT THAT HE WAS SI, PT IS DENING SI AT THIS TIME. PT DENIED PAST SA. VSS. PT AMBULATORY AND A&OX4
--- NOTE | 2019-10-29 08:54 | NUR ---
PT REFUSED DC INSTRUCTIONS STATING HE IS GOING TO [place] SOON ANYWAY. PT TOOK RX AFTER THIS RN's INSISTANCE SO HE CAN GET HIS PSYCH MEDS. PT LEFT ER ON OWN. DID NOT WANT TAXI VOUCHER, STATED HE DOESN'T HAVE A HOTEL YET BUT WILL GET ONE.
[2019-10-29 08:55] VITALS: BP 108/66
== END 2019-10-29 08:57 | disposition home or self-care (01) ==
LOC: ED 03:37
DX: F20.0 Paranoid schizophrenia (principal); F41.1 Generalized anxiety disorder; R45.851 Suicidal ideations; F10.220 Alcohol dependence with intoxication, uncomplicated; F17.290 Nicotine dependence, other tobacco product, uncomplicated; J45.909 Unspecified asthma, uncomplicated; Y90.9 Presence of alcohol in blood, level not specified
CPT/HCPCS: 36415; 80053; 80307; 85025; 96372; 99284; J3486

== ENCOUNTER 2020-04-05 19:20 | Emergency (ER) | payer MEDICAID ==
[~2020-04-05] VITALS: Ht 175.3 cm; Wt 79.0 kg
[2020-04-05] MEDS ORDERED: MORPHINE SULFATE 4 MG/ML, 1ML IVPush PRN (19:30)
[2020-04-05] MEDS ORDERED: SODIUM CHLORIDE FLUSH 10ML SYR IVF ONE (19:30)
[2020-04-05] MEDS ORDERED: ONDANSETRON 2MG/ML, 2ML IVPush ONE (19:30)
[2020-04-05] MEDS ORDERED: SODIUM CHLORIDE 0.9% 1,000ML IVBOLUS ONE (19:30)
[2020-04-05] MEDS ORDERED: MORPHINE SULFATE 4 MG/ML, 1ML ONE (19:44)
[2020-04-05] MEDS ORDERED: ONDANSETRON 2MG/ML, 2ML ONE (19:45)
[2020-04-05 19:59] LABS: BASOPHILS % (AUTO) 1 % (0-1); EOSINOPHILS % (AUTO) 3 % (1-7); LYMPHOCYTES % (AUTO) 24 % (22-44); MEAN CORPUSCULAR HEMOGLOBIN 30.7 pg (27.5-34.5); MEAN CORPUSCULAR HGB CONC 33.7 g/dL (33.2-36.2); MEAN PLATELET VOLUME 8.4 fL (7.4-10.4); MONOCYTES % (AUTO) 7 % (2-9); NEUTROPHILS % (AUTO) 66 % (42-75); PLATELET COUNT 338 x10^3/uL (130-400); RED BLOOD COUNT 3.29 x10^6/uL (4.38-5.82); RED CELL DISTRIBUTION WIDTH 14.9 % (9.4-14.8)
[2020-04-05 20:00] LABS: MD NO
[2020-04-05 20:09] LABS: ALBUMIN 2.9 g/dL (3.4-5.0); ANION GAP 7 mmol/L (5-15); CHLORIDE 117 mmol/L (98-107)
[2020-04-05 20:09] LABS: MICROSCOPIC AUTO
[2020-04-05 20:13] LABS: ALANINE AMINOTRANSFERASE 21 U/L (12-78); ALKALINE PHOSPHATASE 44 U/L (45-117); BILIRUBIN,TOTAL 0.2 mg/dL (0.2-1.0); CREATININE 0.61 mg/dL (0.7-1.3); TOTAL PROTEIN 6.1 g/dL (6.4-8.2)
[2020-04-05 20:56] VITALS: BP 123/75
[2020-04-05] MEDS ORDERED: OMNIPAQUE 350 MG/ML, 100ML BOTTLE ONE (22:32)
== END 2020-04-05 21:23 | disposition home or self-care (01) ==
LOC: ED 21:00
DX: R10.31 Right lower quadrant pain (principal); R10.32 Left lower quadrant pain; F11.10 Opioid abuse, uncomplicated; R30.0 Dysuria; R11.10 Vomiting, unspecified; K59.00 Constipation, unspecified; J45.909 Unspecified asthma, uncomplicated; F17.200 Nicotine dependence, unspecified, uncomplicated
CPT/HCPCS: 36415; 74177; 80053; 81001; 83690; 85025; 96361; 96374; 96375; 99285; J2270; J2405; J7030; Q9967

== ENCOUNTER 2020-04-08 13:27 | Emergency (ER) | payer MEDICAID ==
[~2020-04-08] VITALS: Ht 175.3 cm; Wt 73.4 kg
[2020-04-08 14:28] LABS: BASOPHILS % (AUTO) 1 % (0-1); EOSINOPHILS % (AUTO) 2 % (1-7); LYMPHOCYTES % (AUTO) 27 % (22-44); MEAN CORPUSCULAR HEMOGLOBIN 30.2 pg (27.5-34.5); MEAN CORPUSCULAR HGB CONC 33.2 g/dL (33.2-36.2); MEAN PLATELET VOLUME 8.2 fL (7.4-10.4); MONOCYTES % (AUTO) 8 % (2-9); NEUTROPHILS % (AUTO) 63 % (42-75); PLATELET COUNT 441 x10^3/uL (130-400); RED BLOOD COUNT 3.78 x10^6/uL (4.38-5.82); RED CELL DISTRIBUTION WIDTH 15.1 % (9.4-14.8)
[2020-04-08 14:29] LABS: MD NO
[2020-04-08 14:39] LABS: CHLORIDE 107 mmol/L (98-107)
[2020-04-08 14:47] LABS: ALANINE AMINOTRANSFERASE 23 U/L (12-78); ALBUMIN 3.6 g/dL (3.4-5.0); ALKALINE PHOSPHATASE 54 U/L (45-117); ANION GAP 5 mmol/L (5-15); BILIRUBIN,TOTAL 0.3 mg/dL (0.2-1.0); CALCIUM 9.4 mg/dL (8.5-10.1); CREATININE 0.69 mg/dL (0.7-1.3); TOTAL PROTEIN 7.3 g/dL (6.4-8.2)
--- NOTE | 2020-04-08 15:27 | NUR ---
pt to rrom from lobby at 1520
[2020-04-08 15:33] VITALS: BP 124/81
--- NOTE | 2020-04-08 15:37 | NUR ---
first contact. CONSTIPATION X 4 DAYS WITH BILATERAL LOWER QUADRANT PAIN. pt in bed
--- NOTE | 2020-04-08 16:22 | NUR ---
PT ALINA, walked out self
== END 2020-04-08 16:36 ==
LOC: ED 16:30
DX: R10.30 Lower abdominal pain, unspecified (principal); R10.9 Unspecified abdominal pain; K59.00 Constipation, unspecified; R30.9 Painful micturition, unspecified; J45.909 Unspecified asthma, uncomplicated
CPT/HCPCS: 36415; 74021; 80053; 83690; 85025; 99284